=== PATIENT | female | born 1990 ===

== ENCOUNTER → 2018-03-01 10:00 | Outpatient (CLI) | payer OTHER, SELFPAY | DX: Z23 Encounter for immunization (principal) | CPT/HCPCS: 90471; 90686 ==

== ENCOUNTER → 2019-03-13 11:33 | Outpatient (CLI) | payer OTHER, SELFPAY | DX: Z23 Encounter for immunization (principal) | CPT/HCPCS: 90471; 90686 ==

== ENCOUNTER → 2021-03-19 13:28 | Outpatient (CLI) | payer OTHER, SELFPAY | PROVIDERS: Referring Provider Internal Medicine; Visit Provider Internal Medicine | DX: Z23 Encounter for immunization (principal) | CPT/HCPCS: 90471; 90686 ==